=== PATIENT | male | born 1950 | race Caucasian/White ===

== ENCOUNTER 2018-08-23 12:30 | Inpatient (IN) | payer OTHER ==
[2018-08-12 13:06] LABS: PLATELET COUNT 282 10^3/uL (150-400)
--- NOTE | 2018-08-12 15:33 | CPEKG ---
Test Reason : PREOP Blood Pressure : / mmHG Vent. Rate : 075 BPM Atrial Rate : 075 BPM P-R Int : 146 ms QRS Dur : 096 ms QT Int : 399 ms P-R-T Axes : 077 -34 059 degrees QTc Int : 446 ms Sinus rhythm Left axis deviation Minimal ST elevation, anterior leads Confirmed by Antonio Uribe ([id number]) on 08/12/2018 3:32:46 PM Referred By: Confirmed By:Antonio Uribe
--- NOTE | 2018-08-22 13:39 | GHP ---
DATE OF ADMISSION: 08/23/2018 CHIEF COMPLAINT: Right ankle pain. HISTORY OF PRESENT ILLNESS: Patient is a 67-year-old with history of progressive right ankle pain. He is having significant limitations in his activity level secondary to his pain. PAST MEDICAL HISTORY: Positive for depression, hypertension, osteoporosis, rheumatoid arthritis, and hypothyroid. SOCIAL HISTORY: Positive for tobacco use, half pack a day. MEDICATIONS: Include alendronate, atorvastatin, folic acid, gabapentin, hydrochlorothiazide, hydroch loroquine, levothyroxine, Simbrinza eye drops. ALLERGIES: He lists allergy to penicillins, which cause hives. PHYSICAL EXAMINATION: GENERAL: He is alert and oriented x3. No acute distress. HEENT: Head is no rmocephalic. Pupils equal, round, reactive to light. Extraocular eye movements intact. NECK: Supp le. No JVD or lymphadenopathy. CHEST: Clear to auscultation. HEART: Regular rate and rhythm. No murmurs or gallops. ABDOMEN: Soft, nontender, nondistended. No organomegaly. GENITAL, RECTAL, AN D BREASTS: Deferred. EXTREMITIES: Swelling and tenderness about the anterior aspect of his right a nkle with diminished ankle range of motion. ASSESSMENT: Right end-stage ankle arthrosis. PLAN: The patient is scheduled to undergo a right total ankle arthroplasty. /[id number]/MODL
[2018-08-23] MEDS ORDERED: LIDOCAINE 1% 2 ML INJ ID PRN (13:12)
[2018-08-23] MEDS ORDERED: LR 1,000 ML IV ONE (13:12)
--- NOTE | 2018-08-23 13:14 | PDANEPAE ---
ANE History of Present Illness 67 yo with right ankle arthritis ANE Past Medical History - Cardiovascular History Hx Hypertension: Yes Hx Arrhythmias: No Hx Chest Pain: No Hx Coronary Artery / Peripheral Vascular Disease: No Hx CHF / Valvular Disease: No Hx Palpitations: No - Pulmonary History Hx COPD: No Hx Asthma/Reactive Airway Disease: No Hx Recent Upper Respiratory Infection: No Hx Oxygen in Use at Home: No Hx Sleep Apnea: No Sleep Apnea Screening Result - Last Documented: Positive Pulmonary History Comment: ELIZA triggers only. current smoker, states quitting on Wednesday 08/15, 1 week before the surgery - Neurologic History Hx Cerebrovascular Accident: No Hx Seizures: No Hx Dementia: No - Endocrine History Hx Diabetes: No Hypothyroid: Yes Hyperthyroid: No Obesity: no Endocrine History Comment: hypothyroid - Renal History Hx Renal Disorders: No - Liver History Hx Hepatic Disorders: No - Neurological & Psychiatric Hx Hx Neurological and Psychiatric Disorders: Yes Neurological / Psychiatric History Comment: depression, anxiety, PTSD - Cancer History Hx Cancer: No - Congenital Disorder History Hx Congenital Disorders: No - GI History GERD: no Hx Gastrointestinal Disorders: No - Other Health History Other Health History: wears contacts. walks with a cane. Rheumatoid arthritis , denies neck involvement. very thin skin, bruises easily - Chronic Pain History Chronic Pain: Yes (RA pain, bilateral ankles) - Surgical History Prior Surgeries: 3 eye surgeries. colonoscopy ANE Review of Systems Review of systems is: negative Review of Systems: - Exercise capacity METS (RN): 3 METS ANE Patient History - Allergies Allergies/Adverse Reactions: Penicillins Allergy (Verified 08/11/18 14:27) cannot recall reaction, from as a child - Home Medications Home medications: home medication list seen and reviewed Home Medications: Ascorbic Acid [Vitamin C 500 mg (*)] 3,000 mg PO HS 08/11/18 [Last Taken Unknown ] Atorvastatin Calcium [Lipitor 10 mg (*)] 10 mg PO HS 08/11/18 [Last Taken Unknown] Brinzolamide/Brimonidine Tart [Simbrinza 1%-0.2% Eye Drops] 1 drop LEFTEYE TID 08/11/18 [Last Taken Unknown] Cholecalciferol Vit D3 [Vitamin D3 (*)] 2,000 units PO HS 08/11/18 [Last Taken Unknown] Gabapentin [Neurontin 100 MG (*)] 200 mg PO DAILY 08/11/18 [Last Taken Unknown] Gabapentin [Neurontin 300 MG (*)] 300 mg PO HS 08/11/18 [Last Taken Unknown] Herbals/Supplements -Info Only 1 ea PO DAILY 08/11/18 [Last Taken Unknown] Hydrochlorothiazide [HCTZ (*)] 12.5 mg PO DAILY 08/11/18 [Last Taken Unknown] Levothyroxine [Synthroid 88 mcg (*)] 88 mcg PO DAILY06 08/11/18 [Last Taken Unknown] Methotrexate Sodium [Rheumatrex] 25 mg PO FR 08/11/18 [Last Taken 06/27/18] Tofacitinib Citrate [Xeljanz] 5 mg PO DAILY 08/11/18 [Last Taken 07/03/18] Vitamin B Complex [Vitamin B Complex (OTC)] 1 each PO DAILY 08/11/18 [Last Taken Unknown] predniSONE 2 mg PO DAILY 08/11/18 [Last Taken Unknown] predniSONE [Prednisone] 10 mg PO DAILY 08/11/18 [Last Taken Unknown] - NPO status NPO Status: no food or drink >8 hours - Anes Hx Anes Hx: no prior problems - Smoking Hx Smoking Status: Current every day smoker - Alcohol Use Alcohol Use: Rarely - Family Anes Hx Family Anes Hx: none Family Hx Anesthesia Complications: none ANE Labs/Vital Signs - Labs Result Diagrams: 08/12/18 11:57 08/12/18 11:57 - Vital Signs Height: 170.18 cm Weight: 72.121 kg ANE Physical Exam - Airway Neck exam: FROM Mallampati Score: Class 2 Mouth exam: poor dentition, seals - Pulmonary Pulmonary: no respiratory distress, clear to auscultation - Cardiovascular Cardiovascular: regular rate and rhythym, no murmur, rub, or gallop - ASA Status ASA Status: III ANE Anesthesia Plan Anesthesia Plan: general endotracheal anesthesia Regional Anesthesia: single shot NB, continuous NB, POPC/PSR
[2018-08-23] MEDS ORDERED: PROPOFOL 200 MG/20 ML VIAL ONE (13:17)
[2018-08-23] MEDS ORDERED: MIDAZOLAM 2 MG/2 ML VIAL ONE (13:17)
[2018-08-23] MEDS ORDERED: LIDOCAINE 2% 5 ML SDV ONE (13:17)
[2018-08-23] MEDS ORDERED: fentaNYL 100 MCG/2 ML INJ ONE (13:17)
[2018-08-23] MEDS ORDERED: ROPIVACAINE HCL 150 MG/30 ML INJ ONE (13:59)
[2018-08-23] MEDS ORDERED: BUPIVACAINE 0.5% 30 ML SDV ONE (14:20)
[2018-08-23] MEDS ORDERED: ROPIVACAINE 0.2% 1,100 MG in PUMP SET 1 EA NB SCH (14:30)
[2018-08-23] MEDS ORDERED: ceFAZolin 2 GM/DEXTROSE 100 ML IV ONE (14:48)
--- NOTE | 2018-08-23 14:48 | PDHPUP ---
History & Physical Update H&P update statement: This history and physical update is based on an assessment of the patient which was completed after admission or registration (within 24 hours), but prior to the surgery/procedure. H&P update: H&P reviewed & patient examined, no change in patient's condition since H&P completed
[2018-08-23] MEDS ORDERED: CEFAZOLIN 2 GM/DEXTROSE/100 ML BAG IV ONE (14:50)
[2018-08-23] MEDS ORDERED: DEXAMETHASONE 4 MG/ML VIAL ONE (15:35)
[2018-08-23] MEDS ORDERED: MEPERIDINE 25 MG/0.5 ML AMP IVP PRN (15:42)
[2018-08-23] MEDS ORDERED: PROMETHAZINE HCL 25 MG/ML INJ IVP PRN (15:42)
[2018-08-23] MEDS ORDERED: NALOXONE HCL 0.4 MG/ML INJ IVP PRN (15:42)
[2018-08-23] MEDS ORDERED: HYDROmorphONE/DILAUDID 2 MG/ML INJ IVP PRN (15:42)
[2018-08-23] MEDS ORDERED: fentaNYL 100 MCG/2 ML INJ IVP PRN (15:42)
[2018-08-23] MEDS ORDERED: LABETALOL HCL 20 MG/4 ML INJ IVP PRN (15:42)
--- NOTE | 2018-08-23 15:44 | POSTANESTH ---
Post Anesthetic Evaluation Cardiovascular Status: Normal, Stable Respiratory Status: Normal, Stable Level of Consciousness/Mental Status: Can Participate in Eval Pain Control: Adequate, Prn Tx Ordered Nausea/Vomiting Control: Adequate, Prn Tx Ordered Complications Possibly Related to Anesthesia: None Noted
[2018-08-23] MEDS ORDERED: ePHEDrine SULFATE 25 MG/5 ML SYR ONE (15:57)
[2018-08-23] MEDS ORDERED: ONDANSETRON 4 MG/2 ML VIAL ONE (16:13)
[2018-08-23] MEDS ORDERED: NEOSTIGMINE METHYLSULFATE 5 MG/5 ML SYR ONE (16:17)
[2018-08-23] MEDS ORDERED: GLYCOPYRROLATE 0.2 MG/1 ML VIAL ONE (16:17)
--- NOTE | 2018-08-23 16:31 | POSTOPPROG ---
Post Op Note Date of Operation: 08/23/18 Surgeon: Nuno Medina [employer] Professional: JENNIE Bee Anesthesia: GET(General Endotracheal) Pre-op Diagnosis: R ankle arthrosis Post-op Diagnosis: same Procedure: R TAA Inf/Abcess present in the surg proc area at time of surgery?: No EBL: Minimal
[2018-08-23] MEDS ORDERED: LACTULOSE 20 GM/30 ML UDCUP PO PRN (16:32)
[2018-08-23] MEDS ORDERED: BISACODYL 10 MG SUPP PR PRN (16:32)
[2018-08-23] MEDS ORDERED: ONDANSETRON 4 MG/2 ML VIAL IVP PRN (16:32)
[2018-08-23] MEDS ORDERED: oxyCODONE IR 5 MG TAB PO PRN (16:32)
[2018-08-23] MEDS ORDERED: morphINE PCA 30 MG/30 ML PCA IV PRN (16:32)
[2018-08-23] MEDS ORDERED: POLYETHYLENE GLYCOL 3350 17 GM PKT PO PRN (16:32)
[2018-08-23] MEDS ORDERED: MAGNESIUM HYDROXIDE 30 ML UDCUP PO PRN (16:32)
[2018-08-23] MEDS ORDERED: D5W 1/2 NS W/ 20 KCl/L 1,000 ML IV SCH (16:45)
--- NOTE | 2018-08-23 16:50 | PDMN ---
Medical Necessity Medical necessity: Pt meets inpt criteria per MD order and Musculoskeletal Surgery or Procedure [facility], Total Ankle Arthroplasty, [facility] inpt only list. 67 y/ o w/ R end-stage ankle arthrosis admitted for R TAA and post-op care.
--- NOTE | 2018-08-23 17:29 | CPEKG ---
Test Reason : OPEN Blood Pressure : / mmHG Vent. Rate : 074 BPM Atrial Rate : 074 BPM P-R Int : 153 ms QRS Dur : 093 ms QT Int : 404 ms P-R-T Axes : 081 -39 063 degrees QTc Int : 449 ms Sinus rhythm Left axis deviation Minimal ST elevation, anterior leads -- Unchanged from August 12, 2018 Left atrial abnormality Confirmed by Олег Soto ([id number]) on 08/23/2018 5:29:28 PM Referred By: Confirmed By:Олег Soto
[2018-08-23] MEDS: SENNOSIDES/DOCUSATE SODIUM TAB PO SCH (20:10)
[2018-08-23] MEDS ORDERED: ASCORBIC ACID 500 MG TAB PO SCH (21:00)
[2018-08-23] MEDS ORDERED: ATORVASTATIN CALCIUM 10 MG TAB PO SCH (21:00)
[2018-08-23] MEDS ORDERED: GABAPENTIN 300 MG CAP PO SCH (21:00)
[2018-08-23] MEDS ORDERED: CHOLECALCIFEROL VIT D3 1,000 UNITS TAB PO SCH (21:00)
[2018-08-23] MEDS: ceFAZolin 2 GM/DEXTROSE 100 ML IV SCH (22:36)
[2018-08-23] MEDS: Brinzolamide/Brimonidine Tart [Simbrinza 1%-0.2% Eye Drops] LEFTEYE SCH (22:37)
--- NOTE | 2018-08-23 23:23 | GOP ---
DATE OF OPERATION: 08/23/2018 SURGEON: Nuno Medina MD DIALYSIS RN: GUILLERMO Fields, who was necessary for the completion of the surgery. ANESTHESIA: General plus indwelling popliteal nerve block performed by the anesthesiologist at my re quest for postoperative pain management. PREOPERATIVE DIAGNOSIS: Right end-stage ankle arthritis. POSTOPERATIVE DIAGNOSIS: Right end-stage ankle arthritis. PROCEDURE PERFORMED: 1. Right implant total ankle arthroplasty. 2. Intraoperative use of fluoroscopy. FINDINGS: ESTIMATED BLOOD LOSS: Minimal. INDICATIONS: The patient is a 67 year old with history of progressive ankle pain. Clinically and ra diographically is noted to have advanced right ankle arthritis. Based on his persistence of symptoms refractory to nonoperative treatment, he is interested in pursuing operative treatment. From an ope rative standpoint, options including arthrodesis and total ankle arthroplasty were discussed with ant icipated risks and benefits of both. Patient elected to pursue total ankle arthroplasty. He acknowl edged he understood the potential risks of the operation including, but not limited to, bleeding, inf ection, neurovascular damage including loss of limb or limb function, implant failure requiring remov al or revision, conversion to an arthrodesis or amputation, and anesthetic risks. He acknowledged he understood the potential risks of the planned procedure and postoperative plan well and had all ques tions answered prior to surgery. He gave his consent for the operative procedure. DESCRIPTION OF PROCEDURE: The patient was brought to the operating after IV antibiotics were adminis tered. Indwelling popliteal block was performed by the anesthesiologist at my request for postoperat jayla pain management. General anesthetic was administered. A tourniquet was placed on his right thig h, bump underneath the right hip and shoulder, and the right lower extremity was prepped and draped i n standard sterile fashion. After marking the incision and Shahab wrap exsanguination, the tourniquet w as inflated to 250. An anterior approach to the ankle was utilized for exposure. Skin and subcutane ous tissue were sharply incised. Extensor retinaculum was incised in line with the skin incision. T he interval between the tibialis anterior and extensor hallucis longus was utilized for exposure. Th e capsule was noted to have marked synovitic changes. Hypertrophic capsule was excised. Remaining c apsules reflected medially and laterally. Prominent osteophytes along the anterior aspect of the dis jorden tibia were removed with a chisel. The cutting guide from the Integra Gretta total ankle was sheryl lied. After optimally correcting for varus/valgus, length, medial and lateral translation, flexion/ extension, and rotation, the cutting jig was pinned into place. Pins were placed at the medial and l ateral aspects of the cutting guide to protect the gutters. A saw was utilized to create the distal tibial cut. The medial gutter cut was made with a reciprocating saw after pre-drilling through the c utting block at the optimal level. The cut bone portions were removed with a rongeur. The talar dom e cutting guide was then applied. After distracting through the cutting jig with the ankle held in n eutral dorsiflexed position, the talar dome cut block was pinned into place. A saw was utilized to r emove the talar dome segment. Posterior chamfer talar cutting guide was then applied, and after cristina ecting for rotation and the proper anterior-posterior placement, it was pinned into place. A size 2 talus was felt to be optimal coverage. The posterior chamfer was made with a saw. The posterior tonya mfer cutting block was removed, and the anterior chamfer block was applied through the same pin holes . The anterior cuts were made with the milling drill bit. Peg holes for the talar implant were dril led. A size 2 talar trial was placed and found to have excellent fit. Measurement from the tibia re vealed the 2X to be optimal. The 2X cutting guide with the 7 mm polyethylene was placed and found to have favorable fit and maximal range of motion. Tibial drill holes were then placed through the tri al component. Definitive size 2 talus, size 2X tibia, and 7 mm polyethylene implants were impacted i nto place and found to have excellent fit both clinically and radiographically. There was noted to b e a partial split in the medial malleolus. Plate stabilization was performed. A 2.4 mm DC plate was contoured to fit the medial malleolus. Just proximally to the oblique fracture plane, 2.7 mm cortic al screw was placed through the plate with another 2.7 mm cortical screw placed in the most proximal hole in the plate. Fluoroscopic views confirmed favorable positioning. Attention was directed toward closure. The extensor retinaculum was closed with 2-0 Vicryl suture in interrupted fashion, subcutaneous tissue closed with 3-0 Vicryl suture in interrupted fashion, and s kin closed with 4-0 nylon interrupted horizontal mattress sutures. The wounds were dressed with ster ile Adaptic, 4 x 4, and Webril, and leg was placed in a below-knee splint. The patient tolerated the procedure well and was taken to the recovery room extubated in stable condition postoperatively. Al l sponge, needle, and instrument counts were reported as being correct. DRAINS: None. COMPLICATIONS: None. PLAN: Patient will be admitted for medical management and gait training. He will be nonweightbearin g on his operative extremity. /[id number]/MODL
[2018-08-24] MEDS ORDERED: LEVOTHYROXINE 88 MCG TAB PO SCH (06:00)
[2018-08-24] MEDS: ceFAZolin 2 GM/DEXTROSE 100 ML IV SCH (06:05)
--- NOTE | 2018-08-24 06:19 | SOAPPROG ---
SOAP Progress Note Assessment/Plan: Assessment: S/P R TAA Pain tolerable alexa po + U/O Splint intact, no D/C Toes with good cap refill Plan: OOB/PT D/C home likely 08/24/18 06:18 Objective: Vital Signs Temp Pulse Resp BP Pulse Ox 36.6 C 73 16 114/70 96 08/24/18 04:00 08/24/18 04:00 08/24/18 04:00 08/24/18 04:00 08/24/18 04:00 Laboratory Results 08/12/18 11:57 08/12/18 11:57 08/23/18 08/24/18 08/25/18 05:59 05:59 05:59 Intake Total 750 Output Total 375 Balance 375 ICD10 Worksheet Patient Problems: Problems Problem Status Onset Ankle arthritis Acute Ankle arthritis Acute - ICD10 Problem Qualifiers (1) Ankle arthritis (2) Ankle arthritis
--- NOTE | 2018-08-24 08:52 | PDPAINCON ---
Pain Management Consultation Patient referred by : Adam - Subjective Pain at rest (/10): 0 Pain with activity (/10): 0 Pain is: no pain at all Activity: out of bed with assistance - Objective Technique: continuous peripheral nerve block Site: sciatic Continuous infusion: ropivicaine Catheter site: clean, dry, intact, no erythema/edema/exudate Sensory and motor exam: consistent with block Vital signs: stable - Assessment/Plan Assessment/Plan: pain well-controlled, continue current mgmt (Pt doing great. Reports no pain. Will most likely be d/c ed today. Will follow up via telephone for next couple days until catheter removed.)
[2018-08-24] MEDS ORDERED: VITAMIN B COMPLEX 1 EA CAP/TAB PO SCH (09:00)
[2018-08-24] MEDS ORDERED: Tofacitinib Citrate [Xeljanz] 5 MG PO SCH (09:00)
[2018-08-24] MEDS ORDERED: ENOXAPARIN 40 MG/0.4 ML SYR SC SCH (09:00)
[2018-08-24] MEDS ORDERED: GABAPENTIN 100 MG CAP PO SCH (09:00)
[2018-08-24] MEDS ORDERED: HYDROCHLOROTHIAZIDE 12.5 MG CAP PO SCH (09:00)
[2018-08-24] MEDS: SENNOSIDES/DOCUSATE SODIUM TAB PO SCH (09:07)
[2018-08-24] MEDS: Brinzolamide/Brimonidine Tart [Simbrinza 1%-0.2% Eye Drops] LEFTEYE SCH (09:39)
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
--- NOTE | 2018-08-24 10:41 | ASMTCMCOM ---
CM Note CM Note Notes: PT/OT rec home care, pt amenable. Pt address/phone verified Voicemail left for MD requesting HHC orders and call back if he does not rec HHC. Referral made to [facility], spoke with Carolyn they can accept pending orders. Date Signed: 08/24/2018 10:41 AM Electronically Signed By:DIANA Stanton
--- NOTE | 2018-08-24 10:52 | PDIAF ---
- Diagnosis Code Status: Full Code - Medication Management Discharge Medications: electronically signed and located in the Home Medication List. - Orders Services needed: Physical Therapy Diet Recommendation: no restrictions on diet Wound Care Instructions: Keep splint clean, dry, intact Activity/Weight Bearing Restrictions: Non weight bearing right leg Additional Instructions: Keep splint clean, dry, intact Ice/elevate Non weight bearing right leg F/U as scheduled - Follow Up Care Current Providers and Referrals: Nuno Medina MD [Medical Doctor] - Unknown,Unknown [Primary Care Provider] -
[2018-08-24 12:10] VITALS: BP 123/64
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
== END 2018-08-24 13:26 | disposition home or self-care (01) | DRG 469 ==
LOC: F3N 12:33
PROVIDERS: ADMIT Orthopaedic Surgery Foot and Ankle Surgery; ATTEND Orthopaedic Surgery Foot and Ankle Surgery
PROC: 0SRF0JZ Replacement of Right Ankle Joint with Synthetic Substitute, Open Approach (ICD-10-PCS; principal; 2018-08-23 14:30)
DX: M19.071 Primary osteoarthritis, right ankle and foot (principal); I10 Essential (primary) hypertension; M81.0 Age-related osteoporosis without current pathological fracture; M06.9 Rheumatoid arthritis, unspecified; E03.9 Hypothyroidism, unspecified
CPT/HCPCS: 97116-GP; 97161-GP; 97166-GO; 97535-GO; C1713; G8978-GP-CK; G8979-GP-CJ; G8987-GO-CJ; G8988-GO-CI; J0690; J1100; J1650; J2250; J2405; J2704; J2710; J2795; J3010